=== PATIENT | female | born 1970 | race Caucasian/White ===

== ENCOUNTER 2025-05-24 07:05 | Inpatient (IN) | payer OTHER ==
[2025-05-24] VITALS (49 sets, daily range): BP systolic 152–253; BP diastolic 92–166
[~2025-05-24] VITALS: Ht 162.6 cm; Wt 85.0 kg
[~2025-05-24 07:05] MED LIST: AMLO10 PO; CLON.2 PO; DILT180 PO; FERR160 PO; HYDACE5 PO; LISI20 PO; METO50 PO; OXYACE5T PO; PRED20 PO; RXOXYACE PO
[2025-05-24 08:02] LABS: BASOPHILS ABSOLUTE AUTO 0.05 K/mm3 (0.00-0.23); BASOPHILS PERCENT AUTO 1 % (0-2); EOSINOPHILS ABSOLUTE AUTO 0.32 K/mm3 (0.00-0.68); EOSINOPHILS PERCENT AUTO 4 % (0-6); Hematocrit 34.1 % (33.0-51.0); Hemoglobin 11.5 g/dL (11.5-16.0); IMMATURE GRAN ABSOLUTE AUTO 0.03 K/mm3 (0.00-0.10); IMMATURE GRAN PERCENT AUTO 0 % (0-1); LYMPHOCYTES ABSOLUTE AUTO 1.60 K/mm3 (0.84-5.20); LYMPHOCYTES PERCENT AUTO 19 % (21-46); MONOCYTES ABSOLUTE AUTO 0.39 K/mm3 (0.16-1.47); MONOCYTES PERCENT AUTO 5 % (4-13); Mean Corpuscular HGB Conc 33.7 g/dL (31.5-36.5); Mean Corpuscular Volume 86 fL (80-100); NEUTROPHILS ABSOLUTE AUTO 6.02 K/mm3 (1.96-9.15); NEUTROPHILS PERCENT AUTO 72 % (41-73); NRBC ABSOLUTE 0.00 K/mm3 (0.00-0.02); NRBC Auto 0.0 /100 WBC (0.0-0.2); Platelet Count 271 K/mm3 (150-400); RDW Coefficient Variation 15.3 % (11.7-14.2); RDW Standard Deviation 48.0 fL (35.1-46.3)
[2025-05-24 08:22] LABS: Alanine Aminotransfer (ALT/SGP 73 U/L (12-78); Albumin, Blood 3.8 g/dL (3.4-5.0); Albumin/Globulin Ratio 1.1 (0.8-1.8); Anion Gap 10 mmol/L (3-11); Aspartate Aminotrans (AST/SGOT 92 U/L (12-37); Bilirubin, Total 1.1 mg/dL (0.1-1.0); Blood Urea Nitrogen 35 mg/dL (8-24); CO2, Blood 23 mmol/L (21-32); Calcium, Blood 9.5 mg/dL (8.5-10.1); Chloride, Blood 112 mmol/L (98-108); Creatinine, Blood 2.07 mg/dL (0.40-1.00); Ethanol (Alcohol), Blood, Med <3 mg/dL; Globulin, Blood 3.4 g/dL (2.2-4.0); Glucose, Blood 192 mg/dL (70-99); Magnesium, Blood 2.6 mg/dL (1.6-2.4); Potassium, Blood 3.3 mmol/L (3.5-5.5); Sodium, Blood 142 mmol/L (136-145); Total Protein, Blood 7.2 g/dL (6.4-8.2)
[2025-05-24] MEDS ORDERED: NS 1,000 ML IV SCH ×2 (08:35→11:00)
[2025-05-24] MEDS ORDERED: Labetalol HCL 5 MG/ML 4ML Injection (Single Dose) IV ONE (09:25)
[2025-05-24] MEDS ORDERED: CENTRUM SILVER1 EAC2 PO (10:02)
[2025-05-24] MEDS ORDERED: VITAMIN D5000 UNIT PO (10:02)
[2025-05-24] MEDS ORDERED: SPIRULINA PO (10:03)
[2025-05-24] MEDS ORDERED: IRON18 M1 PO (10:03)
[2025-05-24] MEDS ORDERED: TOTAL BEETS PO (10:03)
[2025-05-24] MEDS ORDERED: POTASSIUM PO (10:04)
[2025-05-24] MEDS ORDERED: Labetalol HCL 5 MG/ML 4ML Injection (Single Dose) IV PRN (10:30)
[2025-05-24] MEDS ORDERED: FLU VACC TS2025-26(6MOS UP)/PF 45 MCG/0.5 ML SYRINGE IM SCH (10:35)
[2025-05-24 10:52] LABS: Source, Urine Clean Catch
[2025-05-24 11:04] LABS: Color, Urine Yellow (P-Yellow); Glucose Qualitative, Urine Neg (Neg); Ketones, Urine Neg (Neg); Leukocyte Esterase, Urine Neg (Neg); Protein, Urine 4+ (Neg); Specific Gravity, Urine 1.025 (1.003-1.022); Urobilinogen, Urine 2+ (Normal)
[2025-05-24 12:00] LABS: Bilirubin, Urine 1+ (Neg)
[2025-05-24 12:03] LABS: White Blood Cells, Urine 0-2 /hpf (0-5)
[2025-05-24 12:42] LABS: U Amphetamine Screen Not Detected; U Barbiturate Screen Not Detected; U Benzodiazapine Screen Not Detected; U Buprenorphine Screen Not Detected; U Cannabinoids Screen Not Detected; U Cocaine Screen Not Detected; U Methadone Screen Not Detected; U Methamphetamine Screen Not Detected; U Opiates Screen Not Detected; U Oxycodone Screen Not Detected; U Phencyclidine Screen Not Detected
[2025-05-24] MEDS ORDERED: NiCARdipine HCL 50 MG in NS 250 ML IV SCH (12:45)
--- NOTE | 2025-05-24 12:50 | NUR ---
CHANGE IN STATUS: PATIENT CONTINUES TO INCREASE SYSTOLIC BLOOD PRESSURE, SPOKE WITH DR. VELIZ, CONTINUOUS CARDIAC IV MEDICATION ICU TRANSFER. DR. VELIZ TO PLACE ORDER. PATIETN AGREEABLE AND EDCUATION FOR NEED. FAMILY UPDATED. PLEASE SEE VITALS. DENIES CHEST PAIN PRESSURE OR SOB AT REST, HOWEVER, WITH EXERTION COMPLAINING OF CHEST/LOWER THROAT DISCOMFORT. ADDITIONALLY, TENDER HARD ABDOMEN PALPATION, INFORMED PROVIDER WELL. NO ACUTE CONCERNS NOT ADRESSED. SHE REMAINS ALERT AND ORIENTED X 4 ABLE TO MAKE NEEDS KNOWN, ENDORSING DIFFICULTY WITH VISION X 3 MONTHS. OVERALL VERY PALLOR. REPORT GIVEN TO CURTAIN DRIER. PARKS RECREATION COORDINATOR AND FLORAL DECORATOR AWARE
[2025-05-24] MEDS ORDERED: NiCARdipine HCL 25 MG/10 ML (2.5MG/ML) IV SCH (13:00)
--- NOTE | 2025-05-24 13:00 | NUR ---
PT TRANSFER TO ICU RECEIVED REPORT FROM PCU NURSE AND PT ARRIVED AT 1300. PT ALERT AND ORIENTED, ABLE TO STATE LOCATION, , AND NAME. PT ABLE TO FOLLOW COMMANDS. PT AMBULATES TO/FROM WHEELCHAIR [facility] NURSE ASSIST. PT ON RA, SPO2 >90%. PT REPORTS PAIN WITH DEEP BREATHS BUT NOT SOB. PT USES CPAP EVERY NIGHT CONSISTENTLY. RT NOTIFIED. RESTING ON RA, SPO2 88-90%. PT IN NSR, HR IN 80-90S. PT HYPERTENSIVE, BP 253/166 AT 1300. NICARDIPINE DRIP STARTED AT 2.5, TITRATED TO 5 D/T SBP >250. PT REPORTS BLURRY VISION AND MIGRAINE. PT ABD DISTENDED AND RIGID. PT DENIES PAIN ON PALPITATION. PT HX OF UTERINE FIBROID AND RIGHT NEPHRECTOMY. PT DOES NOT REMEMBER HER LAST BM, SAYS IT COULD BE THREE DAYS, MAYBE MORE. PT SAYS SHE FEELS LIKE SHE MAY HAVE A BM TODAY. PT SKIN PALLOR ON ASSESSMENT. PT HAS THREE PIVS, WNL. CALL LIGHT WITHIN REACH WITH NO NEEDS NOTED AT THIS TIME.
[2025-05-24 15:02] LABS: EOS, Urine 0.0 % (0.0-1.0); Eosinophils-Raw #,Urine 0
[2025-05-24] MEDS ORDERED: Magnesium Hydroxide Conc 10 ML UDC PO ONE (17:55)
--- NOTE | 2025-05-24 18:36 | NUR ---
SHIFT SUMMARY PT TRANSFERRED AT 1300 FROM PCU D/T HTN. SBP >250, NICARDIPINE DRIP INITIATED AT 1300, CURRENTLY INFUSING AT 2.5. PT REPORTS A "CHOKING" CHEST PAIN WITH EXERTION, NO CHEST PAIN WHILE RESTING IN BED. PT REPORTS MIGRAINES ALMOST DAILY, ON ARRIVAL PT REPORTED A MIGRAINE. DURING REASSESSMENT AT 1600, PT REPORTED MIGRAINE IMPROVED TO A PAIN LEVEL OF 1. PT REPORTS BLURRY VISION FOR A MAJORITY OF THE YEAR, WITH INCREASED BLURRY VISION THE LAST MONTH. PT ABLE TO AMBULATE WITH NURSE ASSIST TO [facility] [place] D/T WEAKNESS AND BLURRY VISION. PT HAS 3 PIVS, WNL. PT HAS DISTENDED ABD AND FIRM TO PALPITATION. PT HAS HX OF UTERINE FIBROID. PT ON RA, SPO2 >90%. PT USES CPAP AT HOME CONSISTENTLY AT NIGHT. CALL LIGHT WITHIN REACH AND NO NEEDS EXPRSSED AT THIS TIME.
[2025-05-25] VITALS (86 sets, daily range): BP systolic 138–187; BP diastolic 87–129
[2025-05-25 03:53] LABS: Anion Gap 9.0 mmol/L (3-11); Blood Urea Nitrogen 39.0 mg/dL (8-24); CO2, Blood 23.0 mmol/L (21-32); Calcium, Blood 9.1 mg/dL (8.5-10.1); Chloride, Blood 112.0 mmol/L (98-108); Creatinine, Blood 2.0 mg/dL (0.40-1.00); Glucose, Blood 108.0 mg/dL (70-99); Potassium, Blood 2.9 mmol/L (3.5-5.5); Sodium, Blood 141.0 mmol/L (136-145)
[2025-05-25] MEDS ORDERED: Potassium Chloride 10 Meq Tablet SA PO ONE ×2 (04:10→07:30)
--- NOTE | 2025-05-25 05:56 | NUR ---
SHIFT SUMMARY A/O X 3, FUZZY ON YEAR, BUT OTHERWISE ANSWERS APPROP, OCCAS SLOW TO RESPOND. HOME CPAP BROUGHT IN BY FAMILY LAST NIGHT AND PT WORE FOR AWHILE, DESATTED TO HIGH 80'S, PT OPTED TO TRY NC WHICH I STARTED AT 4L TO KEEP O2SAT>94%. PT COMFORTABLE WITH NC FOR NOW. TITRATED CARDENE GTT T/O NIGHT PER ORDERS, CURRENTLY AT 10MG/HR (SEE FLOWSHEET.) UP TO BSC A COUPLE OF TIMES EARLY IN SHIFT, INTRODUCED PUREWICK TO PT, SHE OPTED TO TRY IT AND IS WORKING WELL FOR HER. AFEBRILE T/O NIGHT. K+ WAS 2.9 ON AM LAB, DR OVIEDO UPDATED AND PO REPLACEMENT ORDERED AND GIVEN. WILL UPDATE DAY RN WITH ALL OUTSTANDING ISSUES AND PROBLEMS TO DATE.
[2025-05-25] MEDS ORDERED: Insulin Human Lispro 100 Units/ML 3ML Syringe SC SCH (07:30)
--- NOTE | 2025-05-25 08:00 | NUR ---
ASSUMPTION OF CARE RECEIVED REPORT FROM NOC NURSE. PT RESTING WITH EYES CLOSED. PER NOC NURSE, PT ABLE TO STATE NAME AND BUT NEEDS REORIENTATION TO SITUATION AND LOCATION. PT ON 4L NC D/T LUKE AND INTOLERANCE WITH HOSPITAL'S CPAP. PT ON RA WHILE AWAKE. PT HR IN 80-90S, SBP 170S. PT HAS PUREWICK IN PLACE D/T FREQUENCY. PT HAS MODERATELY DISTENDED ABD, DENIES PAIN WITH PALPITATION. PT HAS 3 PIVS, RAC, LAC, AND RHA. LAC LEAKING. NICARDIPINE INFUSING AT 12.5MG. CALL LIGHT WITHIN REACH WITH NO NEEDS EXPRESSED AT THIS TIME.
[2025-05-25] MEDS ORDERED: Enoxaparin 40 MG/0.4 ML SYR SC SCH (09:00)
[2025-05-25 11:19] LABS: pH Blood Venous 7.45 (7.34-7.37)
[2025-05-25] MEDS ORDERED: CefTRIAXone Sodium 1,000 MG in NS 100 ML IV SCH (11:49)
[2025-05-25] MEDS ORDERED: Heparin Sodium,Porcine/0.5 NS 500 ML IV SCH (11:55)
[2025-05-25 12:01] LABS: Hematocrit 28.3 % (33.0-51.0); Hemoglobin 9.3 g/dL (11.5-16.0); Mean Corpuscular HGB Conc 32.9 g/dL (31.5-36.5); Mean Corpuscular Volume 87 fL (80-100); NRBC ABSOLUTE 0.00 K/mm3 (0.00-0.02); NRBC Auto 0.0 /100 WBC (0.0-0.2); Platelet Count 284 K/mm3 (150-400); RDW Coefficient Variation 16.1 % (11.7-14.2); RDW Standard Deviation 50.2 fL (35.1-46.3)
[2025-05-25 12:03] LABS: Anti-Xa UFH, PHA Monitoring 0.15 IU/mL; Prothrombin Time Results 12.1 Sec (9.7-11.5)
[2025-05-25 12:09] LABS: Alanine Aminotransfer (ALT/SGP 166.0 U/L (12-78); Albumin, Blood 3.6 g/dL (3.4-5.0); Albumin/Globulin Ratio 1.1 (0.8-1.8); Anion Gap 10.0 mmol/L (3-11); Aspartate Aminotrans (AST/SGOT 110.0 U/L (12-37); Bilirubin, Total 0.9 mg/dL (0.1-1.0); Blood Urea Nitrogen 38.0 mg/dL (8-24); CO2, Blood 23.0 mmol/L (21-32); Calcium, Blood 9.2 mg/dL (8.5-10.1); Chloride, Blood 112.0 mmol/L (98-108); Creatinine, Blood 1.82 mg/dL (0.40-1.00); Globulin, Blood 3.2 g/dL (2.2-4.0); Glucose, Blood 138.0 mg/dL (70-99); Potassium, Blood 3.2 mmol/L (3.5-5.5); Sodium, Blood 142.0 mmol/L (136-145); Total Protein, Blood 6.8 g/dL (6.4-8.2)
--- NOTE | 2025-05-25 15:00 | NUR ---
CHANGE IN MENTATION AT 1020, PT PRESENTED WITH CHANGE IN MENTATION, UNABLE TO STATE SITUATION, TIME, OR LOCATION. PT INITIALLY ABLE TO STATE NAME AND , THEN REASSESSED AND UNABLE STATE . DR NOTIFIED. BLOOD GLUCOSE CHECKED, WNL. ASSESSED PT WITH NIHSS SCALE, PT SCORED AN 11 ON THE NIHSS SCALE. HEAD CT SCAN AND MRI SCAN PERFORMED, SUSPECTED ISCHEMIC STROKE. NOTIFIED. NEUROLOGY CONSULTED. PT ON NICARDIPINE DRIP AT 15, SBP IN 160-190S. PT ABLE TO FOLLOW COMMANDS AND MOVE ALL EXTREMITIES, REQUIRES CLEAR INSTRUCTIONS AND REPEATED AT TIMES. PT REPORTED ON ADMISSION BLURRY VISION, CHANGE IN VISION DURING 1020 ASSESSMENT, PRIMARILY IN RIGHT EYE. PT STATED THAT SHE COULD NOT SEE THROUGH HER RIGHT EYE AT ALL. PT ABLE TO STATE , NAME, AND WHERE SHE LIVES AT AT 1400, UNSURE OF LOCATION. PT REQUIRING MORE O2 SUPPORT, PT ON 4-6L NC CONTINUOUS. PT CURRENTLY RESTING WITH NO NEEDS NOTED AT THIS TIME.
[2025-05-25] MEDS ORDERED: Dose Adjust by Pharmacy XX STA ×2 (16:54→23:55)
--- NOTE | 2025-05-25 18:12 | NUR ---
SHIFT SUMMARY PT ALERT AND ORIENTED AT BEGINNING OF SHIFT, ABLE TO STATE NAME, , AND LOCATION BUT STRUGGLED WITH DATE. AT 1020, MENTATION DECREASED SIGNIFICANTLY. PERFORMED NIHSS SCALE, SCORE OF 11. SEE NOTE FOR MORE INFORMATION INVOLVING MENTATION CHANGES AND INTERVENTIONS PERFORMED. HEAD CT, HEAD MRI, LUNG SCAN, AND VENOUS ULTRASOUND PERFORMED. PT IN NSR, HR IN 80-90S, SBP 170-180S. DR. VELIZ RX TO TITRATE NICARDIPINE TO SBP IN 180S/PERMISSIVE HTN. NICARDIPINE AT 15 AND HEPARIN AT 18 UNITS. PT REQUIRING MORE O2 SUPPORT, 4-6L CONTINUOUS. CPAP NIGHTLY. ABD DISTENDED, PT DENIES ABD PAIN WITH PALPITATION. PT HAD INCONTINENT EPISODE, PUREWICK IN PLACE ATTACHED TO SUCTION. NEURO IMPROVED SLIGHTLY T/O SHIFT. ABLE TO STATE NAME, LOCATION, AND FOLLOW COMMANDS. PT UNABLE TO STATE AND SITUATION THAT LED TO HOSPITAL. SIGNIFICANT OTHER NOTIFIED AND SISTER AT BEDSIDE. CALL LIGHT WITHIN REACH WITH NO NEEDS NOTED AT THIS TIME.
[2025-05-26] VITALS (83 sets, daily range): BP systolic 141–211; BP diastolic 87–158
[2025-05-26] MEDS ORDERED: Dose Adjust by Pharmacy XX STA ×2 (01:53→07:35)
[2025-05-26] MEDS ORDERED: FentaNYL Citrate 50 MCG/ML 2 ML Injection IV ONE (04:20)
--- NOTE | 2025-05-26 06:07 | NUR ---
SHIFT SUMMARY AROUSABLE AT START OF SHIFT WITH VERBAL, MORE AWAKE WHEN DOING NIHSS, PT EASILY FRUSTRATED WHEN PERFORMING EVALUATION, DIFFICULTY WITH MULT ASPECTS DUE TO BLURRY VISION/PARTIAL BLINDNESS (PT STATES IS BASELINE). TITRATED NICARDIPINE GTT DOWN FROM 15MG TO 5MG/HR BY THIS AM, KEEPING SBP 170'S-180'S PER ORDERS. PT BECAME QUITE ANXIOUS, WRITHING IN PAIN (ABD), CRYING AROUND 0400, DR OVIEDO CALLED AND ORDER RECEIVED FOR FENT 50MCG X1 WHICH WAS GIVEN. PT STATED PAIN WENT AWAY, FEELING MUCH BETTER POST MED. EXPRESSIVE APHASIA IMPROVED T/O SHIFT, ABLE TO EXPRESS HERSELF WITH LESS DIFFICULTY. VSS STABLE AND AFEBRILE T/O NIGHT. LABS PENDING (SCHEDULED FOR 0630 W/aPTT). HEPARIN GTT INFUSING PER PHARMACY, NOW AT 21 U/KG/HR. WILL UPDATE DAY RN WITH ANY OUTSTANDING ISSUES/PROBLEMS TO DATE.
[2025-05-26 06:58] LABS: Hematocrit 29.7 % (33.0-51.0); Hemoglobin 9.4 g/dL (11.5-16.0); Mean Corpuscular HGB Conc 31.6 g/dL (31.5-36.5); NRBC ABSOLUTE 0.00 K/mm3 (0.00-0.02); NRBC Auto 0.0 /100 WBC (0.0-0.2); Platelet Count 289 K/mm3 (150-400); RDW Coefficient Variation 16.3 % (11.7-14.2); RDW Standard Deviation 55.3 fL (35.1-46.3)
[2025-05-26 06:59] LABS: Mean Corpuscular Volume 93 fL (80-100)
[2025-05-26 07:08] LABS: Anion Gap 12.0 mmol/L (3-11); Blood Urea Nitrogen 35.0 mg/dL (8-24); CO2, Blood 19.0 mmol/L (21-32); Calcium, Blood 8.8 mg/dL (8.5-10.1); Chloride, Blood 115.0 mmol/L (98-108); Creatinine, Blood 1.44 mg/dL (0.40-1.00); Glucose, Blood 120.0 mg/dL (70-99); Potassium, Blood 3.7 mmol/L (3.5-5.5); Sodium, Blood 142.0 mmol/L (136-145)
[2025-05-26] MEDS ORDERED: Benzocaine Oral Spray 0.5ML UD ONE (09:16)
--- NOTE | 2025-05-26 09:24 | NUR ---
AM NOTE... ASSUMED CARE OF PT AT 0700, PT IS A&O TO SELF, PLACE, AND FOLLOWING DIRECTIONS. PT HAS NOTED EXPRESSIVE APHASIA. LEFT IS SLIGHTLY MORE WEAK THAN THE RIGHT BUT IMPROVED FROM YESTERDAY. PT IS STILL C/O OF NOT BEING ABLE TO SEE OUT OF THE RIGHT EYE AND VERY BLURRY VISION OUT OF THE LEFT. PT IS IN SR IN THE 90'S-110'S, PT IS ON NICARDIPINE GTT AT 5MG/HR TO KEEP SBPs IN THE 180'S. PT DENIES CHEST PAIN DURING THIS ASSESSMENT. L/S ARE CLEAR AND DIM T/O SHE IS ON 4L NC WHEN NOT ON CPAP WITH 4L BLEED IN TO KEEP O2 SATS>90%. BT ARE PRESENT AND HYPERACTIVE, ABD IS DISTENDED, SOFT BUT VERY TENDER TO PALPATION. PT IS C/O OF 8/10 ABD PAIN, MOSTLY TO THE LEFT SIDE BUT STATES IT "HAPPENS ALL OVER AT TIMES." PURWICK IS IN PLACE. URINE IS SHIVAM. PLAN FOR FRANCISCO THIS AM AT THE BEDSIDE. PT HAS BEEN NPO FOR SAJI WHICH HAS BEEN RESCHEDULED FOR TOMORROW D/T THE FRANCISCO.
[2025-05-26] MEDS ORDERED: Benzocaine Oral Spray 0.5ML UD MT ONE (10:10)
--- NOTE | 2025-05-26 11:36 | NUR ---
FRANCISCO PROCEDURE... ANESTHESIA WAS AT THE BEDSIDE ALONG WITH EXPERIMENTAL BOX TESTER FOR A BEDSIDE FRANCISCO TO IDENTIFY THE MASS IN THE PT'S RIGHT ATRIUM. AT THE START OF THE PROCEDURE THE PT STARTED TO COUGH AND CLAMP DOWN, MORE SEDATION WAS GIVEN BY ANESTHESIA AND A SECDOND ATTEMPT TO PASS THE SCOPE WAS DONE, DURING THIS TIME THE PT STARTED COUGHING AND CLAMPED DOWN AGAIN, HER O2 SATS DROPPED DOWN FROM THE HIGH 90'S TO THE LOW 30'S. ANESHESIA PLACED AN LMA AND STARTED BAGGING THE PT. THE PT'S O2 SATS SLOWLY IMPOVED AND THE CASE WAS CANCELED. DURING THE CASE THE PT'S HR WAS SR IN THE 90'S-110'S. BP WAS HYPERTENSIVE WITH SBPs IN THE 180'S-190'S. LMA WAS REMOVED ONCE THE PT WOKE UP AND WAS ABLE TO PROTECT HER AIRWAY.
[2025-05-26] MEDS ORDERED: Polyethylene Glycol 3350 17 gm PO SCH (12:50)
[2025-05-26] MEDS ORDERED: N-Acetylcysteine 600 MG CAP PO SCH (13:00)
[2025-05-26] MEDS ORDERED: Metoprolol Tartrate 1 MG/ML 5 ML VIAL IV PRN (13:50)
--- NOTE | 2025-05-26 17:50 | NUR ---
SHIFT SUMMARY... NO ACUTE NEGATIVE CHANGES SINCE PREVIOUS NOTES. PT CONTINUES TO BE ON THE NICARDIPINE GTT AT 10MG/HR TO KEEP SBPs IN THE 180'S PER ORDERS. THE HEPARIN GTT WAS STOPPED PER ORDERS THIS SHIFT. PT WAS UP TO THE BS TO HAVE A BM. IMPACTED STOOL NOTED, PROVIDER NOTIFIED, NEW ORDERS OBATINED FOR BOWEL CARE. PT CONTINUES TO BE IN SR IN THE 80'S-90'S. SHE IS ON 4L NC WITH O2 SATS>90% OR CPAP WITH 4L BLEED IN. PT IS TO BE NPO AFTER MIDNIGHT FOR HYDASCAN TOMORROW, TIME UNKNOWN. PLANS FOR CARDIAC CT IF PT'S HR GOES BELOW 75.
[2025-05-26] MEDS ORDERED: FentaNYL Citrate 50 MCG/ML 2 ML Injection IV PRN (20:00)
[2025-05-26] MEDS ORDERED: Propofol 10mg/ml 20 ml Vial (Procedural) IV ONE (21:10)
[2025-05-26] MEDS ORDERED: SuccINYLCHOLINE Chloride 100 MG/5 ML 5MLSYR IV ONE (21:10)
[2025-05-27] VITALS (97 sets, daily range): BP systolic 143–199; BP diastolic 63–118
[2025-05-27 04:15] LABS: Hematocrit 28.6 % (33.0-51.0); Hemoglobin 9.3 g/dL (11.5-16.0); Mean Corpuscular HGB Conc 32.5 g/dL (31.5-36.5); Mean Corpuscular Volume 89 fL (80-100); NRBC ABSOLUTE 0.00 K/mm3 (0.00-0.02); NRBC Auto 0.0 /100 WBC (0.0-0.2); Platelet Count 332 K/mm3 (150-400); RDW Coefficient Variation 15.9 % (11.7-14.2); RDW Standard Deviation 52.2 fL (35.1-46.3)
[2025-05-27 05:15] LABS: Alanine Aminotransfer (ALT/SGP 89.0 U/L (12-78); Albumin, Blood 3.1 g/dL (3.4-5.0); Albumin/Globulin Ratio 0.9 (0.8-1.8); Anion Gap 12.0 mmol/L (3-11); Aspartate Aminotrans (AST/SGOT 33.0 U/L (12-37); Bilirubin, Total 0.9 mg/dL (0.1-1.0); Blood Urea Nitrogen 40.0 mg/dL (8-24); CO2, Blood 20.0 mmol/L (21-32); Calcium, Blood 9.3 mg/dL (8.5-10.1); Chloride, Blood 114.0 mmol/L (98-108); Creatinine, Blood 1.61 mg/dL (0.40-1.00); Ferritin, Serum 218.0 ng/mL (8-252); Globulin, Blood 3.5 g/dL (2.2-4.0); Glucose, Blood 125.0 mg/dL (70-99); Potassium, Blood 3.8 mmol/L (3.5-5.5); Sodium, Blood 142.0 mmol/L (136-145); Total Iron Binding Capacity 220.0 ug/dL (250-450); Total Protein, Blood 6.6 g/dL (6.4-8.2)
--- NOTE | 2025-05-27 06:07 | NUR ---
SHIFT SUMMARY MORE ALERT, ANXIOUS, SLIGHTLY AGITATED, C/O PAIN EARLY IN SHIFT. DR PATEL UPDATED AND ORDER RECEIVED FOR PAIN MED. PT MUCH MORE CALM, COOPERATIVE, PLEASANT AFTER PAIN CONTROLLED. PAIN MED GIVEN X 2 DURING SHIFT, CURRENTLY SLEEPING, CALM, DENIES PAIN. VSS WITH NICARDIPINE GTT, TITRATING FOR SBP 180S. SBP 160'S-180'S WITH GTT CURRENTLY AT 10MG/HR. INCONT OF STOOL AND URINE, PUREWICK REPLACED AFTER CLEANED UP AND ATTENDS CHANGED. WILL UPDATE DAY RN WITH ANY OUTSTANDING ISSUES AND PROBLEMS TO DATE.
[2025-05-27] MEDS ORDERED: Sod Ferric Gluc Complx/Sucrose 125 MG in NS 100 ML IV SCH (09:00)
[2025-05-27] MEDS ORDERED: Polyethylene Glycol 3350 17 gm PO SCH (09:00)
[2025-05-27] MEDS ORDERED: Enoxaparin 40 MG/0.4 ML SYR SC SCH ×2 (09:00)
--- NOTE | 2025-05-27 13:32 | NUR ---
PT ARRIVED BACK FROM NUCLEAR MED STUDY 1330. VS STABLE. NICARDAPINE OFF, SBP GOAL 180S.
--- NOTE | 2025-05-27 19:09 | NUR ---
SHIFT SUMMARY: NPO THROUGHOUT MORNING FOR IMAGING, PAINFUL THIS MORNING AND RESPONDED WELL TO REPOSITIONING WITH HEAT THERAPY, PT ENDORSED RELIEF OF PAIN, NO MEDICATION GIVEN. SPOUSE UPDATED THIS AFTERNOON. A/O X4, PLEASANT AND COOPERATIVE WITH CARE, SPEECH IS MUMBLED AT TIMES, DIFFICULTY INITIATING WORDS, ABLE TO COMMUNICATE NEEDS WITH TIME, ANXIOUS, EMOTIONAL: CRYING AT TIMES, RESPONDS WELL TO REDIRECTION, RIGHT PUPIL IS NOT ROUND, PT REPORTS THIS IS FROM A CHILDHOOD INJURY, INDEPENDENCE ENCOURAGED WITH FEEDING SELF, PT INDEPENDENTLY ATE SF PUDDING CUP WITH SET UP AND ORIENTATION TO SPOON/CUP. NSR, HR 60-90 S, EF 50-55%, PERMISSIVE HTN GOAL OF SBP 180 COMPLETE, SBP GOAL 140 (SEE NURSE NOTIFY), PT ENDORSED MILD CHEST PAIN THIS MORNING THAT QUICKLY RESOLVED ON IT S OWN, PT DENIES CHEST PAIN, PRESSURE, DIZZINESS, AND NUMBNESS/TINGLING AT THIS TIME. SPO2 >90% ON 2, TITRATED TO 8L WHEN LYING FLAT FOR IMAGING, USES CPAP W/SLEEP, HOME CPAP AT BEDSIDE, PT DENIES SOB. KNOWN UTERINE FIBROID, ABD MILDLY TENDER TO LIGHT PALPATION, HX OF RIGHT NEPHRECTOMY, PUREWICK IN PLACE TO LIGHT SUCTION, BM SMEAR. BED BATH THIS SHIFT. PT ORIENTED TO CALL LIGHT WITH TELE PATCH FOR AID WITH FINDING NURSE CALL BUTTON, PT SUCCESSFULLY DEMONSTRATED USE OF CALL LIGHT, Q2 SELF AND ASSISTED TURNING.
[2025-05-28] VITALS (94 sets, daily range): BP systolic 132–192; BP diastolic 78–118
--- NOTE | 2025-05-28 02:12 | NUR ---
SPOKE TO DR OVIEDO ABOUT PT BP, OK W/ SYSTOLIC 160
[2025-05-28 05:09] LABS: Albumin, Blood 3.0 g/dL (3.4-5.0); Anion Gap 8 mmol/L (3-11); Blood Urea Nitrogen 37 mg/dL (8-24); CO2, Blood 22 mmol/L (21-32); Calcium, Blood 9.0 mg/dL (8.5-10.1); Chloride, Blood 115 mmol/L (98-108); Creatinine, Blood 1.50 mg/dL (0.40-1.00); Glucose, Blood 102 mg/dL (70-99); Phosphorus, Blood 3.7 mg/dL (2.5-4.9); Potassium, Blood 3.7 mmol/L (3.5-5.5); Sodium, Blood 141 mmol/L (136-145)
[2025-05-28] MEDS ORDERED: Isosorbide Mononitrate 30 MG TABCR PO ONE (05:50)
--- NOTE | 2025-05-28 06:00 | NUR ---
SHIFT SUMMERY PT HAS BEEN ALERT AND ORIENTED TO SELF AND PLACE OVERNIGHT. SHE IS ABLE TO FOLLOW COMMANDS AND MAKE NEEDS KNOWN. NO DEFICITS NOTED ON EITHER SIDE W/STRENGTH EQUAL W/DIFFUSE WEAKNESS. SHE HAS WORN HER CPAP ALL NIGHT W/BLEED IN OXYGEN, SATURATION >90% W/NO RESP DISTRESS REPORTED OR NOTED. PT HAS BEEN SR ON THE SEAT JOINER. AFEBRILE. SHE IS INCONTINENT OF URINE W/PUREWICK IN PLACE. NO BM. PT HAS BEEN HYPERTENSIVE THROUGHOUT THE NIGHT. I HAVE SPOKEN W/DR OVIEDO NEEDED AND ORDERS GIVEN APPROPRIATE. NICARDIPINE INFUSING, SEE [facility]. NO ACUTE CHANGES/DISTRESS OVERNIGHT.
[2025-05-28] MEDS ORDERED: NS 250 ML IV PRN (09:20)
--- NOTE | 2025-05-28 19:06 | NUR ---
PT HAS BEEN LETHARGIC BUT ORIENTED THROUGHOUT THE SHIFT. PT CONTINUES TO HAVE AGNOSIA AND DIFFICULTY FINDING CERTAIN WORDS SHE WISHES TO USE BUT SHE IS USUALLY ABLE TO EXPRESS ALL NEEDS ADEQUATELY. PAIN MANAGED WITH PRN MEDICATIONS PT FOLLOWS COMMANDS ON ALL EXTREMITIES ALTHOUGH SHE IS VERY WEAK. SHE WAS ABLE TO FEED HERSELF BUT SHE NEEDS TO KNOW WHAT AND WHERE EACH FOOD IS LOCATED SHE IS STILL UNABLE TO SEE WELL. GRIPPING UTENSILS IS DIFFICULT FOR HER. PT GOT UP TO CHAIR THIS AM WITH 2 ASSIST. PT HAS REMAINED ON 2L NC AND SATS > 95 PT HAS BEEN IN NSR IN THE 60S-70S. BLOOD PRESSURES HAVE BEEN LABILE WITH NICARD GTT/ PO/ IV PRN MEDICATIONS. I WAS ABLE TO GET THE GTT OFF BUT BPS TYSHAWN TO 180S SYS AND PT DEVELOPED HEADACHE. NICARD GTT WAS TURNED BACK ON AND IV PRN MEDICATIONS GIVEN. PT WITH PUREWICK AND ADEQUATE URINE OUTPUT. NO BM FOR DAYSHIFT.
--- NOTE | 2025-05-28 21:21 | NUR ---
ASSUMPTION OF CARE CARE OF PT ASSUMED FOLLOWING BEDSIDE SHIFT REPORT FROM DAY RN. PT LYING IN BED SLEEPING, AWAKES TO VOICE AND IS ALERT AND ORIENTED TO ALL, THOUGH SOME FORM OF EXPRESSIVE APHASIA IS PRESENT WITH PT HAVING TROUBLE "FINDING" WORDS. AFEBRILE. SINUS RHYTHM IN THE 60'S WITH ELEVATED BP ON NICARDIPINE 5 MG/HR. 145/100. WILL TITRATE NEEDED AND WILL ADMINISTER NEWLY DOSED SCHEDULED HTN MEDS TONIGHT. NO CHEST PAIN OR SOB. 2L NC WITH SAT > 92% PT ABDOMEN IS DISTENDED WITH PALPABLE UTERINE FIBROID. BS ACTIVE THROUGHOUT. PT C/O PAIN IN EPIGASTRUM- CANNOT ADD DETAILS. WILL ADMINISTER ALEXANDRA COLACE AND MAY ADVOCATE FOR ADDITIONAL PHARMACOLOGIC INTERVENTION, ALTHOUGH LAST BM LESS THAN 24 HRS AGO. PUREWICK IN PLACE TO SUCTION; URINE IS SHIVAM. WILL MONITOR. WILL REVIEW AND CONTINUE PLAN OF CARE.
[2025-05-29] VITALS (85 sets, daily range): BP systolic 141–193; BP diastolic 82–135
[2025-05-29 03:30] LABS: BASOPHILS ABSOLUTE AUTO 0.05 K/mm3 (0.00-0.23); BASOPHILS PERCENT AUTO 1 % (0-2); EOSINOPHILS ABSOLUTE AUTO 0.21 K/mm3 (0.00-0.68); EOSINOPHILS PERCENT AUTO 2 % (0-6); Hematocrit 27.4 % (33.0-51.0); Hemoglobin 8.7 g/dL (11.5-16.0); IMMATURE GRAN ABSOLUTE AUTO 0.04 K/mm3 (0.00-0.10); IMMATURE GRAN PERCENT AUTO 1 % (0-1); LYMPHOCYTES ABSOLUTE AUTO 1.15 K/mm3 (0.84-5.20); LYMPHOCYTES PERCENT AUTO 13 % (21-46); MONOCYTES ABSOLUTE AUTO 0.99 K/mm3 (0.16-1.47); MONOCYTES PERCENT AUTO 12 % (4-13); Mean Corpuscular HGB Conc 31.8 g/dL (31.5-36.5); Mean Corpuscular Volume 90 fL (80-100); NEUTROPHILS ABSOLUTE AUTO 6.20 K/mm3 (1.96-9.15); NEUTROPHILS PERCENT AUTO 72 % (41-73); NRBC ABSOLUTE 0.00 K/mm3 (0.00-0.02); NRBC Auto 0.0 /100 WBC (0.0-0.2); Platelet Count 354 K/mm3 (150-400); RDW Coefficient Variation 14.9 % (11.7-14.2); RDW Standard Deviation 49.1 fL (35.1-46.3)
[2025-05-29 04:43] LABS: Albumin, Blood 2.9 g/dL (3.4-5.0); Anion Gap 8 mmol/L (3-11); Blood Urea Nitrogen 37 mg/dL (8-24); CO2, Blood 23 mmol/L (21-32); Calcium, Blood 8.9 mg/dL (8.5-10.1); Chloride, Blood 114 mmol/L (98-108); Creatinine, Blood 1.42 mg/dL (0.40-1.00); Glucose, Blood 112 mg/dL (70-99); Phosphorus, Blood 3.2 mg/dL (2.5-4.9); Potassium, Blood 3.8 mmol/L (3.5-5.5); Sodium, Blood 141 mmol/L (136-145)
--- NOTE | 2025-05-29 05:59 | NUR ---
SHIFT SUMMARY PT LYING IN BED IN NO APPARENT DISTRESSED, APPEARED TIRED ALL SHIFT, SHE DOES NOW. ORIENTED TO ALL BUT EXPRESSIVE APHASIA CONTINUES. AFEBRILE. MOVES EXTREMITIES AND STRENGTH INTACT. PT APPEARS TO HAVE SOME CENTRAL VISION ISSUE. SINUS RHYTHM WITH RATE 50-80, NOW 65, AND ELEVATED BP. PLAN WAS TO TITRATE OFF OF NICARDIPINE BUT THAT HAS NOT HAPPENED YET, AND IT IS STILL AT 7.5 MG/HR WITH ONE DOSE OF LABETALOL GIVEN. NO CHEST PAIN/PRESSURE OR SOB. SAT > 90% ON CPAP WITH 6L BLEED IN OR ON NC 6L WHEN OFF CPAP. EIGASTRIC AB PAIN ALL SHIFT TREATED WITH FENTANYL X 1 AND TYLENOL X 1. NO BM. BS ACTIVE. AB DISTENDED. PUREWICK IN PLACE TO SUCTION WITH 625 OUT FOR SHIFT. BEDSIDE SHIFT REPORT GIVEN TO ONCOMING RAMIRO
[2025-05-29] MEDS ORDERED: Ondansetron HCl 2 MG / ML 2ML Vial IV PRN (14:50)
--- NOTE | 2025-05-29 19:09 | NUR ---
N: PT REMAINS DROWSY BUT ORIENTED WHEN QUESTIONED. SHE HAS EXPRESSIVE APHASIA AT TIMES BUT CAN COMMUNICATE NEEDS. SHE IS WEAK WITH STAND AND PIVOTS AND MUST BE REMINDED OF SAFETY INSTRUCTIONS WITH AMBULATING. C: PT REMAINS ON NICARDIPINE AT 3 MG/HR. I WAS ABLE TO TITRATE FROM 10 MG/HR BUT PT STILL NEEDS THE GTT TO KEEP SYS < 180. HRS 60-70S. L: PT ON 2-3L NC THROUGHOUT SHIFT MAINTAINING SATS > 95 G/G: PT WITH ONE EPISODE OF NAUSEA THAT WAS RELIEVED WITH PRN ZOFRAN. PT WITHOUT BM SINCE 05/27. SHE IS GETTING BOWEL PREP MEDS BUT WAS EDUCATED ON OPIOIDS CAUSING CONSITPATION. PUREWICK IN PLACE TO LOW SUCTION. URINE OUTPUT ADEQUATE FOR THE SHIFT. POSSIBLE BLOOD TINGED URINE, INFORMED ONCOMING NURSE TO MONITOR.
--- NOTE | 2025-05-29 22:29 | NUR ---
ASSUMPTION OF CARE ASSUMED CARE OF PT APPROX 1900. PT REMAINS A/O X4, ABLE TO ANSWER QUESTIONS AND USE CALL LIGHT BUT NEEDS REMINDED OF LOCATION AT TIMES. PT IS ABLE TO REPOSITION WITHIN BED BUT NEEDS STANDBY ASSIST WITH GAIT BELT TO TRANSFER BETWEEN CHAIR AND BED. BP REMAINS ELEVATED BUT WITHIN PROVIDER PARAMETERS WITH SBP IN 160S-170S WITH NICARDIPENE INFUSING AT 3 MG/HR. SATS REMAIN >93% ON CPAP WITH 02 AT 4L. SINUS ON MONITOR WITH RATES IN THE 60S-70S. PT ASSISTED FROM BEDSIDE CHAIR INTO BED APPROX 2100 AND PLACED ON HOME CPAP MACHINE. CALL LIGHT WITHIN REACH.
[2025-05-30] VITALS (58 sets, daily range): BP systolic 146–219; BP diastolic 84–154
[2025-05-30 04:25] LABS: Anion Gap 8.0 mmol/L (3-11); Blood Urea Nitrogen 31.0 mg/dL (8-24); CO2, Blood 23.0 mmol/L (21-32); Calcium, Blood 9.3 mg/dL (8.5-10.1); Chloride, Blood 114.0 mmol/L (98-108); Creatinine, Blood 1.29 mg/dL (0.40-1.00); Glucose, Blood 103.0 mg/dL (70-99); Potassium, Blood 4.0 mmol/L (3.5-5.5); Sodium, Blood 141.0 mmol/L (136-145)
--- NOTE | 2025-05-30 04:36 | NUR ---
PATIENT UPDATE PT CONTINUES TO BE HYPERTENSIVE WITH LITTLE EFFECT FROM PRN LABETALOL PUSHES. SBP REMAINS IN THE 180S-190S WITH NICARDIPENE GTT AT 3 MG/HR. SPOKE WITH PROVIDER WHO CLARIFIED INSTRUCTIONS FOR NURSING STAFF TO CONTINUE TITRATING NICARDIPENE RATHER THAN ADJUSTING PRN MEDICATIONS. NICARDIPENE GTT INCREASED TO 5.5M G/HR -SEE [facility].
--- NOTE | 2025-05-30 05:54 | NUR ---
SHIFT SUMMARY PT REMAINS A/O X4, ON HOME CPAP WHILE SLEEPING WITH SATS >93%. BP REMAINS ELEVATED WITH SBP IN THE 170S-180S AND NICARDIPENE GTT AT 5.5 MG/HR, SEE PREVIOUS NOTE AND [facility]. DENIES HEADACHE, N/V. SINUS RHYTHM ON MONITOR WITH RATE IN THE 60S. PT REPOSITIONS SELF AND TURNS IN BED WHILE RESTING, 2 ASSIST WITH GAIT BELT TO TRANSFER TO BEDSIDE CHAIR. PUREWICK IN PLACE TO LOW SUCTION. CALL LIGHT WITHIN REACH.
--- NOTE | 2025-05-30 08:14 | NUR ---
ASSUMPTION OF CARE ASSUMED CARE OF PATIENT AT APPROX 0700. PATIENT A&OX4 AND ABLE TO MAKE NEEDS KNOWN. HR SINUS IN THE 80S-90S. SBP IN THE 180S WITH NICARDIPINE INFUSING AT 8MG/HR. PATIENT ON 4LO2 VIA HOME CPAP MACHINE WITH SPO2 >94%. PUREWICK IN PLACE DRAINING YELLOW URINE TO SUCTION. CALL LIGHT IN REACH. BED IN LOWEST POSITION. AT 0800 PATIENT UP TO CHAIR. ON RA WITH SPO2 >94%. NICARDIPINE INFUSING AT 5MG/HR WITH SBP IN THE 160S.
--- NOTE | 2025-05-30 11:35 | NUR ---
CONSULT RECEIVED AND REVIEWED. NO POLST/AD ON FILE.
--- NOTE | 2025-05-30 14:46 | NUR ---
HYPERTENSION SBP MAINTAINING 160S-170S DESPITE SCHEDULED AND PRN MEDICATION REGIMEN. PROVIDER NOTIFIED AND INSTRUCTED TO NOT RESTART NICARDIPINE GTT AND CONTINUE ORDERED MEDICATION REGIMEN.
--- NOTE | 2025-05-30 17:44 | NUR ---
SHIFT SUMMARY PATIENT A&OX4 AND ABLE TO MAKE NEEDS KNOWN WITH CALL LIGHT. NO FOCAL DEFICITS. PATIENT ENDORSED SOME ANXIETY TODAY ABOUT FAMILY DYNAMICS AND CURRENT SITUATION. HR SINUS IN THE 60S-80S. SBP IN THE 180S DESPITE MULTIPLE BP MEDICATIONS AND TWO DOSES OF LABETALOL. PROVIDER AWARE, NEW GOAL TO KEEP SBP UNDER 180. PATIENT ON 2L02 VIA NC WITH SPO2 >96%. PUREWICK IN PLACE DRAINING YELLOW URINE TO LOW SUCTION. NO BM THIS SHIFT. PATIENT UP WITH NURSE ASSIST TO CHAIR TODAY. CALL LIGHT IN REACH.
[2025-05-30] MEDS ORDERED: Labetalol HCL 5 MG/ML 4ML Injection (Single Dose) IV PRN (19:00)
--- NOTE | 2025-05-30 19:30 | NUR ---
ASSUMPTION OF CARE ASSUMED CARE OF PT APPROX 1900. PT RESTING IN BED ON 2L NC, SATS 95%. SINUS ON MONITOR WITH RATE OF 68, BP REMAINS ELEVATED WITH SYSTOLIC IN 170S. PT DENIES HEADACHE, N/V AT THIS TIME. PT REMAINS A/O, ABLE TO ANSWER QUESTIONS AND USE CALL LIGHT APPROPRIATELY. DENIES UNMET NEEDS AT THIS TIME. CALL LIGHT WITHIN REACH.
[2025-05-31] VITALS (60 sets, daily range): BP systolic 139–194; BP diastolic 86–112
--- NOTE | 2025-05-31 00:35 | NUR ---
PATIENT UPDATE PT REMAINS HYPERTENSIVE WITH SBP 195-219 WITH LITTLE IMPROVEMENT DESPITE PRN LABETALOL PUSHES AND SCHEDULED PO MEDICATIONS. CONTACTED PROVIDER, INSTRUCTIONS GIVEN TO RESTART NICARDIPENE GTT WITH NEW GOAL OF 170 SBP.
[2025-05-31 04:23] LABS: BASOPHILS ABSOLUTE AUTO 0.07 K/mm3 (0.00-0.23); BASOPHILS PERCENT AUTO 1 % (0-2); EOSINOPHILS ABSOLUTE AUTO 0.38 K/mm3 (0.00-0.68); EOSINOPHILS PERCENT AUTO 5 % (0-6); Hematocrit 34.0 % (33.0-51.0); Hemoglobin 10.9 g/dL (11.5-16.0); IMMATURE GRAN ABSOLUTE AUTO 0.16 K/mm3 (0.00-0.10); IMMATURE GRAN PERCENT AUTO 2 % (0-1); LYMPHOCYTES ABSOLUTE AUTO 1.28 K/mm3 (0.84-5.20); LYMPHOCYTES PERCENT AUTO 16 % (21-46); MONOCYTES ABSOLUTE AUTO 0.75 K/mm3 (0.16-1.47); MONOCYTES PERCENT AUTO 9 % (4-13); Mean Corpuscular HGB Conc 32.1 g/dL (31.5-36.5); Mean Corpuscular Volume 89 fL (80-100); NEUTROPHILS ABSOLUTE AUTO 5.47 K/mm3 (1.96-9.15); NEUTROPHILS PERCENT AUTO 67 % (41-73); NRBC ABSOLUTE 0.00 K/mm3 (0.00-0.02); NRBC Auto 0.0 /100 WBC (0.0-0.2); Platelet Count 499 K/mm3 (150-400); RDW Coefficient Variation 15.1 % (11.7-14.2); RDW Standard Deviation 48.6 fL (35.1-46.3)
[2025-05-31 04:55] LABS: Anion Gap 7.0 mmol/L (3-11); Blood Urea Nitrogen 27.0 mg/dL (8-24); CO2, Blood 25.0 mmol/L (21-32); Calcium, Blood 9.6 mg/dL (8.5-10.1); Chloride, Blood 111.0 mmol/L (98-108); Creatinine, Blood 1.18 mg/dL (0.40-1.00); Glucose, Blood 105.0 mg/dL (70-99); Potassium, Blood 3.8 mmol/L (3.5-5.5); Sodium, Blood 139.0 mmol/L (136-145)
--- NOTE | 2025-05-31 06:27 | NUR ---
SHIFT SUMMARY PT REMAINS A/O X4, ABLE TO USE CALL LIGHT AND MAKE NEEDS KNOWN. CURRENTLY ON CPAP WHILE SLEEPING, SATS >94%, SINUS ON MONITOR WITH RATE IN THE 70S, BP REMAINS ELEVATED WITH SBP IN THE 180S-190S WITH PRN LABETALOL AND NICARDIPENE GTT. CONTACTED PROVIDER TO FOLLOW UP AFTER LAST PT UPDATE SINCE NICARDIPENE WAS RESTARTED AND CONFIRMED ORDERS ARE TO CONTINUE DRIP WITH PO MEDS AND IV PUSH LABETALOL NEEDED PER AUG. NICARDIPENE CURRENTLY AT 12.5 MG/HR. PUREWICK IN PLACE TO LOW SUCTION DRAINING PALE YELLOW URINE. PT DENIES HEADACHE, N/V, DENIES UNMET NEEDS AT THIS TIME. CALL LIGHT WITHIN REACH.
[2025-05-31] MEDS ORDERED: Labetalol HCL 5 MG/ML 4ML Injection (Single Dose) IV PRN (08:10)
--- NOTE | 2025-05-31 14:00 | NUR ---
PROVIDER CONTACT PATIENT COMPLAINED OF CHEST PAIN WHILE WORKING WITH OT. PATIENT PUT BACK INTO BED, EKG DONE. PATIENT ENDORSED PAIN WAS GONE ONCE LAYING BACK DOWN IN BED. DR ANAYA NOTIFIED. NO NEW ORDERS.
--- NOTE | 2025-05-31 15:53 | NUR ---
PROVIDER CONTACT PATIENT WAS HAVING A LOT OF ANXIETY AND WAS UNABLE TO RELAX AND TOLERATE WEARING HER CPAP. CONTACTED DR ANAYA. ORDERS RECIEVED. PATIENT NOW ABLE TO TOLERATE CPAP AFTER ANXIETY MEDICATION.
--- NOTE | 2025-05-31 17:12 | NUR ---
SHIFT SUMMARY PATIENT A&OX4 AND ABLE TO MAKE NEEDS KNOWN WITH THE CALL LIGHT. NO FOCAL DEFICITS. PATIENT ENDORSES SOME ISSUES WITH PERIPHERAL VISION AT TIMES. HR SINUS IN THE 60S-80S. BP STABLE ON THE NICARDIPINE GTT. SEE FLOWSHEET FOR TITRATIONS. PATIENT ON RA THROUGHOUT THE DAY WITH SPO2 >94%. PATIENT USED CPAP INTERMITTENTLY THIS EVENING. SEE PROVIDER CONTACT NOTE ABOUT ANXIETY. PUREWICK IN PLACE AND DRAINING PALE YELLOW URINE TO SUCTION. NO BM THIS SHIFT DESPITE SCHEDULED BOWEL MEDS. CALL LIGHT IN REACH. BED IN LOWEST POSITION.
--- NOTE | 2025-05-31 20:00 | NUR ---
ASSUMPTION OF CARE CARE OF PT ASSUMED FOLLOWING BEDSIDE SHIFT REPORT FROM DAY RN. PT LYING IN BED SLEEPING, ALERT AND ORIENTED UPON AWAKENING, THOUGH SLOW TO RESPOND TO QUESTIONS EXPRESSIVE APHASIA PERSISTS. NO GROSS NEURO DEFICITS. AFEBRILE. PT ENDORSES HEADACHE. SINUS RHYTHM IN THE 70'S WITH SBP 160'S ON NICARDIPINE 8 MG/HR. PT SET TO RECEIVE 50MG OF HYDRALAZINE AND SOME AMLODIPINE PO AT 2100. PT HAS CPAP ON ALREADY; MARIANA CAME AND TRIED TO FIX AND EVENTUALLY REPLACED PT'S HOME CPAP WITH A NEW ONE. HAS 3L O2 BLEED IN, PRODUCING SATURATIONS > 92%. PT DENIES CHEST PAIN AND SOB. PT LUNGS ARE RHONCHOROUS IN THE ANTERIOR/MEDIAL [place] AND MUCOUS IS AUDIBLE IS PT'S UPPER AIRWAY. TRIED TO SUCTION AND TAUGHT PT HOW TO USE SUCTION. PT HAS NOT HAD BM SINCE 05/27; PLAN TO ESCALATE BOWEL REGIMEN TONIGHT. NO AB PAIN, N/V. BOWEL SOUNDS INTACT THROUGHOUT. PUREWICK IN PLACE DRAINING YELLOW URINE TO LOW SUCTION. WILL REVIEW AND CONTINUE PLAN OF CARE.
[2025-06-01] VITALS (70 sets, daily range): BP systolic 144–190; BP diastolic 87–120
[2025-06-01 05:20] LABS: Anion Gap 9.0 mmol/L (3-11); Blood Urea Nitrogen 26.0 mg/dL (8-24); CO2, Blood 24.0 mmol/L (21-32); Calcium, Blood 9.4 mg/dL (8.5-10.1); Chloride, Blood 109.0 mmol/L (98-108); Creatinine, Blood 1.31 mg/dL (0.40-1.00); Glucose, Blood 115.0 mg/dL (70-99); Potassium, Blood 3.7 mmol/L (3.5-5.5); Sodium, Blood 138.0 mmol/L (136-145)
--- NOTE | 2025-06-01 06:30 | NUR ---
SHIFT SUMMARY PT LYING IN BED IN NO APPARENT DISTRESSED, SLEEPING WITH CPAP ON AND AWAKES TO VOICE. ORIENTED TO ALL BUT EXPRESSIVE APHASIA CONTINUES. AFEBRILE TO 98.8 F MOVES EXTREMITIES AND STRENGTH INTACT. PT APPEARS TO HAVE SOME VISION ISSUE THAT MAKES DRINKING FLUIDS INDEPENDENTLY, SOMEWHAT DIFFICULT. SINUS RHYTHM WITH RATE 60-80, NOW 68, AND ELEVATED BP. NICARDIPINE IS STILL AT 8 MG/HR WITH ONE DOSE OF LABETALOL GIVEN, WHICH DID ABSOLUTELY NOTHING TO DECREASE SBP. NO CHEST PAIN/PRESSURE OR SOB. SAT > 90% ON CPAP WITH 2L BLEED IN OR ON NC 3L WHEN OFF CPAP. AP PAIN DRASTICALLY DECREASED AFTER A LATE SHIFT BM. BS ACTIVE. AB DISTENDED. PUREWICK IN PLACE TO SUCTION WITH 1325 OUT FOR SHIFT. BEDSIDE SHIFT REPORT GIVEN TO ONCOMING RN
--- NOTE | 2025-06-01 10:31 | NUR ---
ASSUMPTION OF CARE ASSUMED CARE OF PATIENT AT APPROXIMATELY 0700. PT RESTING IN BED, ALERT AND ORIENTED X4. PT ANSWERS QUESTIONS APPROPRIATELY, FOLLOWS DIRECTION WHEN PROMPTED AND IS ABLE TO MAKE HER NEEDS KNOWN. PT EXPERIENCING BLURRY VISION, STATES SHE FEELS IT HAS IMPROVED SINCE BEING IN THE HOSPITAL. HR 60'S SINUS, NICARDIPINE DRIP INFUSING AT 6MG/HR, SEE FLOWSHEET FOR TIRTRATIONS. GOAL TO MAINTAIN SBP <180. PT ON 2LPM VIA NC, CPAP WITH 2L O2 BLEED IN WHILE SLEEPING. BOWEL TONES HYPERACTIVE, PT TOLERATING PO INTAKE. PUREWICK AND ATTENDS IN PLACE. PIV IN PLACE TO LFA, POWERGLIDE IN PLACE TO TAYLOR. BED IN LOWEST POSITION, CALL LIGHT WITHIN REACH, CARE CONTINUES.
--- NOTE | 2025-06-01 16:24 | NUR ---
PT UPDATE PT COMPLAINING OF 3/10 CHEST PAIN DESCRIBED PRESSURE WITH OCCASIONAL SHARP PAINS. PT STATES SHE DOES FEEL ANXIOUS. MEDICATED PER EMAR. DR. ROD CALLED AND NOTIFIED OF THE CP, NO NEW ORDERS AT THIS TIME. BED IN LOWEST POSITION, CALL LIGHT WITHIN REACH, CARE CONTINUES.
--- NOTE | 2025-06-01 17:23 | NUR ---
SHIFT SUMMARY PT CONTINUES TO REST IN BED, SLEEPING BUT AROUSABLE. PT ORIENTED X4, SLOW TO RESPOND AT TIMES. PT ABLE TO MAKE HER NEEDS KNOWN, MOVES EXTREMITIES EQUALLY BILATERALLY, AMBULATES IN THE ROOM WITH ASSISTANCE. HR 60-80'S SINUS, NICARDIPINE PLACED ON SB THIS SHIFT, SEE FLOWSHEET FOR TITRATIONS, GIVEN PRN MEDICATION FOR HTN, SEE EMAR. PT COMPLAINING OF CHEST PAIN 08/16, PROVIDER INFOMRED. PT ALTERNATING BETWEEN RA AND CPAP WITH 2L 02 BLEED IN WHILE SLEEPING. BOWEL TONES ACTIVE THROUGHOUT. PUREWICK AND ATTENDS IN PLACE. PIV IN PLACE TO LFA, POWERGLIDE IN PLACE TO TAY[place]OR SL. BED IN LOWEST POSITION, CALL LIGHT WITHIN REACH, CARE CONTINUES.
[2025-06-02] VITALS (42 sets, daily range): BP systolic 127–178; BP diastolic 82–109
[2025-06-02 04:44] LABS: Anion Gap 11.0 mmol/L (3-11); Blood Urea Nitrogen 31.0 mg/dL (8-24); CO2, Blood 23.0 mmol/L (21-32); Calcium, Blood 9.7 mg/dL (8.5-10.1); Chloride, Blood 108.0 mmol/L (98-108); Creatinine, Blood 1.32 mg/dL (0.40-1.00); Glucose, Blood 123.0 mg/dL (70-99); Potassium, Blood 3.8 mmol/L (3.5-5.5); Sodium, Blood 138.0 mmol/L (136-145)
--- NOTE | 2025-06-02 06:13 | NUR ---
TRANSFER OF CARE CARE OF PT TRANSERRED TO ANOTHER RN AT 0500. PT ALERT AND ORIENTED WITH EXPRESSIVE APHASIA AND BLURRY VISION AND A MILD HEADACHE. PT ANXIETY IS CONTROLLED WITH XANAX BID AND THIS SEEMS TO BE HELPING WITH BP CONTROL, WHICH WAS BELOW 170 SYSTOLIC FOR MOST OF SHIFT. SINUS RHYTHM RATE IN THE 60'S. NICARDIPINE STAYED OFF. CPAP ON AT 2L BLEED IN WITH > 90% SPO2. PT DENIES CHEST PAIN, SOB, N/V ALL SHIFT. SOME CRAMPING AB PAIN THAT WAS BETTER AFTER AN INCONTINENT BM. CHARTED URINE OUTPUT THROUGH PUREWICK 700ML WITH MORE IN CANISTER AT TIME OF PT TRANSFER. SALINE LOCKED. BEDSIDE SHIFT REPORT GIVEN TO ACCEPTING RN.
--- NOTE | 2025-06-02 06:25 | NUR ---
TRANSFER OF CARE ASSUMED CARE AT 0500. PT RESTING COMFORTABLY IN BED WITH CPAP ON W/ 2L BLEED IN. O2 SATS <95. IN A SINUS RHYTHM, HR 70'S. BP 160'S SYSTOLIC. PUREWICK IN PLACE AND DRAINING TO SUCTION. BED IN LOWEST POSITION, CALL LIGHT WITHIN REACH.
--- NOTE | 2025-06-02 19:03 | NUR ---
N: PT A&O X4. STILL PRESENTS WITH EXPRESSIVE APHASIA BUT IS ORIENTED AND ABLE TO COMMUNICATE ALL NEEDS. BLE STRENGTH IS IMPROVING AND TRANSFERS ARE GETTING EASIER FOR HER. GRASPING SMALL ITEMS IS DIFFICULT FOR HER. CV: HRS 70-80S. SYS CONTROLLED WITH PO MEDICATIONS. LABATELOL GIVEN ONCE AT 0715. R: PT USING CPAP DURING NAPS THROUGHOUT THE DAY. ON ROOM AIR OF 1700 WITH SATS REMAINING ABOVE 95% G/G: PT HAS ADEQUATE APPETITE. SHE HAD AN INCONTINENT STOOL X1 TIME TODAY. PUREWICK TO LOW SUCTION. ADEQUATE URINE OUTPUT THROUGHOUT DAY. PT WENT AROUND HOSPITAL AND OUTSIDE TODAY AND SHE STATED IT WAS FUN AND MADE HER FEEL GOOD.
[2025-06-03] VITALS (11 sets, daily range): BP systolic 138–179; BP diastolic 79–106
[2025-06-03 03:51] LABS: Anion Gap 9.0 mmol/L (3-11); Blood Urea Nitrogen 31.0 mg/dL (8-24); CO2, Blood 25.0 mmol/L (21-32); Calcium, Blood 9.6 mg/dL (8.5-10.1); Chloride, Blood 109.0 mmol/L (98-108); Creatinine, Blood 1.42 mg/dL (0.40-1.00); Glucose, Blood 104.0 mg/dL (70-99); Potassium, Blood 3.7 mmol/L (3.5-5.5); Sodium, Blood 139.0 mmol/L (136-145)
--- NOTE | 2025-06-03 06:31 | NUR ---
PT STABLE THROUGHOUT THE SHIFT. PT AOX3-4, TRANSFERS WITH 1 ASSIST AND FWW. PT INCONTINENT TO BOWEL AND BLADDER. PT DID HAVE 1 LARGE BM AND 1 LARGE URINE INCONTINENCE. PUREWICK IN PLACE NOW AND IS COLLECTING URINE. PT SYSTOLIC REMAINED UNDER 170MMHG AND DID NOT REQUIRE ANY PRN. PT ABLE TO SWALLOW PILLS WELL WITH WATER. PT IS ABLE TO TURN IN BED TO HELP WITH BRIEF AND LINEN CHANGES. WILLS AND GOWN CHANGED D/T URINARY INCONTIENCE.
[2025-06-03 09:26] LABS: BASOPHILS ABSOLUTE AUTO 0.03 K/mm3 (0.00-0.23); BASOPHILS PERCENT AUTO 0 % (0-2); EOSINOPHILS ABSOLUTE AUTO 0.42 K/mm3 (0.00-0.68); EOSINOPHILS PERCENT AUTO 5 % (0-6); Hematocrit 31.4 % (33.0-51.0); Hemoglobin 10.1 g/dL (11.5-16.0); IMMATURE GRAN ABSOLUTE AUTO 0.08 K/mm3 (0.00-0.10); IMMATURE GRAN PERCENT AUTO 1 % (0-1); LYMPHOCYTES ABSOLUTE AUTO 1.03 K/mm3 (0.84-5.20); LYMPHOCYTES PERCENT AUTO 13 % (21-46); MONOCYTES ABSOLUTE AUTO 0.80 K/mm3 (0.16-1.47); MONOCYTES PERCENT AUTO 10 % (4-13); Mean Corpuscular HGB Conc 32.2 g/dL (31.5-36.5); Mean Corpuscular Volume 89 fL (80-100); NEUTROPHILS ABSOLUTE AUTO 5.42 K/mm3 (1.96-9.15); NEUTROPHILS PERCENT AUTO 70 % (41-73); NRBC ABSOLUTE 0.00 K/mm3 (0.00-0.02); NRBC Auto 0.0 /100 WBC (0.0-0.2); Platelet Count 513 K/mm3 (150-400); RDW Coefficient Variation 15.0 % (11.7-14.2); RDW Standard Deviation 48.3 fL (35.1-46.3)
--- NOTE | 2025-06-03 11:07 | NUR ---
PT A/O X4. OOB TO CHAIR FOR BREAKFAST. WEAK BUT STEADY GAIT WITH FWW AND SBA. TOLERATES BREAKFAST WELL. PT STATES SHE HAS BLURRY VISION THAT STARTED PRIOR TO ADMIT AND HAS NOT CHANGED. DENIES ANY VISION LOSS OR BLACK SPOTS. BP IMPROVED AFTER PO BP MEDS THIS AM. PT CHANGED TO MEDICAL STATUS AND TAKEN TO ROOM 301 VIA WC. NO SIGN OF DISTRESS.
--- NOTE | 2025-06-03 11:15 | NUR ---
TRANSFER FROM ICU PATIENT ALERT AND INTERACTIVE. SLOW TO RESPOND TO QUESTIONS BUT APPROPRIATE RESPONSES. PATIENT APPEARS TO BE SHORT OF BREATH WHEN ATTEMPTING TO TALK BUT DENIES BEING SHORT OF BREATH WHEN ASKED. PATIENT WEARS CPAP AT HOME. 2 HOME MACHINES BROUGHT UP WITH PATIENT WITH 2 DIFFERENT STYLES OF MASKS. PATIENT STATES SHE HAS NOT SEEN A DOCTOR FOR SOME TIME. PATIENT STATES THAT SHE WANTS TO SEE PROVIDERS AT [facility] [place] [place]. PATIENT STATES HER VISION IS ABOUT HER NORMAL. SHE SAYS SHE HAS GLASSES AT HOME THAT HELP WITH HER BLURRY VISION. PATIENT ABLE TO MOVE WITH MINIMAL ASSISTANCE BUT NOTED TO HAVE SOME WEAKNESS GETTING LEGS IN BED. IRON INFUSION IN PROGRESS FROM ICU.
--- NOTE | 2025-06-03 18:30 | NUR ---
SHIFT SUMMARY PATIENT ALERT AND INTERACTIVE. TEARFUL AT TIMES. PATIENT INCONSISTANT WITH ANSWERS RELATED TO VISION. STATING SHE "CAN'T SEE" BUT WHEN TURN LIGHTS ON, VISION IMPROVES. PATIENT STATES SHE WEARS GLASSES BUT NO GLASSES WITH PATIENT. PATIENT CONTINUES TO BE 1 PERSON STAND BY ASSIST TO BATHROOM. PATIENT UP IN CHAIR MOST OF DAY. PATIENT WORKED WITH OT.
--- NOTE | 2025-06-03 19:25 | NUR ---
PATIENT VERY TEARFUL DURING BEDSIDE REPORT. ADMITS THAT SHE HAS TROUBLES WITH ANXIETY. PROVIDED ACTIVE LISTENING AND ENCOURAGEMENT. PATIENT MEDICATED EARLIER WITH XANAX.
[2025-06-04] VITALS (7 sets, daily range): BP systolic 135–174; BP diastolic 73–101
[2025-06-04 05:53] LABS: BASOPHILS ABSOLUTE AUTO 0.04 K/mm3 (0.00-0.23); BASOPHILS PERCENT AUTO 1 % (0-2); EOSINOPHILS ABSOLUTE AUTO 0.40 K/mm3 (0.00-0.68); EOSINOPHILS PERCENT AUTO 5 % (0-6); Hematocrit 31.1 % (33.0-51.0); Hemoglobin 10.0 g/dL (11.5-16.0); IMMATURE GRAN ABSOLUTE AUTO 0.06 K/mm3 (0.00-0.10); IMMATURE GRAN PERCENT AUTO 1 % (0-1); LYMPHOCYTES ABSOLUTE AUTO 1.09 K/mm3 (0.84-5.20); LYMPHOCYTES PERCENT AUTO 14 % (21-46); MONOCYTES ABSOLUTE AUTO 0.83 K/mm3 (0.16-1.47); MONOCYTES PERCENT AUTO 11 % (4-13); Mean Corpuscular HGB Conc 32.2 g/dL (31.5-36.5); Mean Corpuscular Volume 89 fL (80-100); NEUTROPHILS ABSOLUTE AUTO 5.35 K/mm3 (1.96-9.15); NEUTROPHILS PERCENT AUTO 69 % (41-73); NRBC ABSOLUTE 0.00 K/mm3 (0.00-0.02); NRBC Auto 0.0 /100 WBC (0.0-0.2); Platelet Count 499 K/mm3 (150-400); RDW Coefficient Variation 15.0 % (11.7-14.2); RDW Standard Deviation 48.5 fL (35.1-46.3)
--- NOTE | 2025-06-04 06:17 | NUR ---
SHIFT SUMMARY PATIENT ADMITTED FOR SYNCOPE AND COLLAPSE. PATIENT ALERT AND ORIENTED X3-4. PATIENT AMBULATES TO BATHROOM WITH ONE ASSIST AND FRONT WHEEL WALKER. PATIENT TEARFUL AT THE BEGINNING OF SHIFT STATING SHE COULD NOT SEE AND COULD NOT FIND THE CALL LIGHT. PATIENT LIKES THE LIGHTS TO STAY ON AT ALL TIMES SO SHE CAN SEE. NO ACUTE OVERNIGHT EVENTS. VSS. BED RAILS UP X2. BED RAILS UP X2. CALL LIGHT WITHIN REACH. BED IN LOWEST POSITION FOR SAFETY.
[2025-06-04 06:19] LABS: Alanine Aminotransfer (ALT/SGP 47.0 U/L (12-78); Albumin, Blood 2.8 g/dL (3.4-5.0); Albumin/Globulin Ratio 0.7 (0.8-1.8); Anion Gap 9.0 mmol/L (3-11); Aspartate Aminotrans (AST/SGOT 37.0 U/L (12-37); Bilirubin, Total 0.4 mg/dL (0.1-1.0); Blood Urea Nitrogen 29.0 mg/dL (8-24); CO2, Blood 25.0 mmol/L (21-32); Calcium, Blood 9.7 mg/dL (8.5-10.1); Chloride, Blood 107.0 mmol/L (98-108); Creatinine, Blood 1.58 mg/dL (0.40-1.00); Globulin, Blood 4.3 g/dL (2.2-4.0); Glucose, Blood 108.0 mg/dL (70-99); Potassium, Blood 4.3 mmol/L (3.5-5.5); Sodium, Blood 137.0 mmol/L (136-145); Total Protein, Blood 7.1 g/dL (6.4-8.2)
--- NOTE | 2025-06-04 16:58 | NUR ---
Shift Summary 54 y old female admitted on the with syncopal episode, and lacunar infarct. Today, she has been alert, oriented x4, tele SR in the 60-70s with 1st degree and bundle branch block, resp even, lungs clear diminished at bases, abdomen has palpable mass noted, doctor in room and examined, has history of uterine fibroid. positive BS. trace edema to LEs positive pedal pulses IV is patent to TAYLOR, does not draw blood though. IV removed from LFA catheter intact dressing applied. Tolerated all meals without difficulty. BS stable throughout the shift. Patient is using the call light appropriately, did not complain of difficulty seeing. Does not like the TV on due to noise distraction. Blood pressures monitored closely throughout the day. see chart
[2025-06-04] MEDS ORDERED: Polyethylene Glycol 3350 17 gm PO SCH (21:00)
[2025-06-05 04:00] VITALS: BP 156/96
--- NOTE | 2025-06-05 04:34 | NUR ---
SHIFT SUMMARY PATIENT ADMITTED FOR SYNCOPE AND COLLAPSE. PATIENT ALERT AND ORIENTED X3-4, SHE DID HAVE SOME CONFUSION THIS SHIFT. PATIENT WAS NOT USING HER CALL LIGHT AND WOULD GET UP TO THE SIDE OF THE BED INDEPENDENTLY WHEN NEEDING TO GO TO THE BATHROOM. SPINDLE TESTER REPORTED ST ELEVATION AT APPROXIMATELY 0415 PATIENT WAS ASYMPTOMATIC AND VSS STABLE, MONITORING AT THIS TIME FOR WORSENING SYMPTOMS OR ST ELEVATION. NO OTHER ACUTE OVERNIGHT EVENTS THIS SHIFT. BED RAILS UP X2. BED IN LOWEST POSITION FOR SAFETY. CALL LIGHT WITHIN REACH.
[2025-06-05 05:53] LABS: BASOPHILS ABSOLUTE AUTO 0.04 K/mm3 (0.00-0.23); BASOPHILS PERCENT AUTO 1 % (0-2); EOSINOPHILS ABSOLUTE AUTO 0.33 K/mm3 (0.00-0.68); EOSINOPHILS PERCENT AUTO 4 % (0-6); Hematocrit 30.3 % (33.0-51.0); Hemoglobin 9.9 g/dL (11.5-16.0); IMMATURE GRAN ABSOLUTE AUTO 0.07 K/mm3 (0.00-0.10); IMMATURE GRAN PERCENT AUTO 1 % (0-1); LYMPHOCYTES ABSOLUTE AUTO 1.02 K/mm3 (0.84-5.20); LYMPHOCYTES PERCENT AUTO 13 % (21-46); MONOCYTES ABSOLUTE AUTO 0.89 K/mm3 (0.16-1.47); MONOCYTES PERCENT AUTO 12 % (4-13); Mean Corpuscular HGB Conc 32.7 g/dL (31.5-36.5); Mean Corpuscular Volume 88 fL (80-100); NEUTROPHILS ABSOLUTE AUTO 5.28 K/mm3 (1.96-9.15); NEUTROPHILS PERCENT AUTO 69 % (41-73); NRBC ABSOLUTE 0.00 K/mm3 (0.00-0.02); NRBC Auto 0.0 /100 WBC (0.0-0.2); Platelet Count 484 K/mm3 (150-400); RDW Coefficient Variation 14.6 % (11.7-14.2); RDW Standard Deviation 47.1 fL (35.1-46.3)
[2025-06-05 06:23] LABS: Anion Gap 9.0 mmol/L (3-11); Blood Urea Nitrogen 31.0 mg/dL (8-24); CO2, Blood 24.0 mmol/L (21-32); Calcium, Blood 9.5 mg/dL (8.5-10.1); Chloride, Blood 107.0 mmol/L (98-108); Creatinine, Blood 1.66 mg/dL (0.40-1.00); Glucose, Blood 103.0 mg/dL (70-99); Potassium, Blood 4.1 mmol/L (3.5-5.5); Sodium, Blood 136.0 mmol/L (136-145)
[2025-06-05 07:55] VITALS: BP 184/105
[2025-06-05 11:15] VITALS: BP 156/86
[2025-06-05 12:16] LABS: Anion Gap 11.0 mmol/L (3-11); Blood Urea Nitrogen 29.0 mg/dL (8-24); CO2, Blood 24.0 mmol/L (21-32); Calcium, Blood 9.4 mg/dL (8.5-10.1); Chloride, Blood 106.0 mmol/L (98-108); Creatinine, Blood 1.65 mg/dL (0.40-1.00); Glucose, Blood 110.0 mg/dL (70-99); Potassium, Blood 4.0 mmol/L (3.5-5.5); Sodium, Blood 137.0 mmol/L (136-145)
[2025-06-05 12:50] LABS: Source, Urine Clean Catch
[2025-06-05 12:53] LABS: Bilirubin, Urine Neg (Neg); Glucose Qualitative, Urine 2+ (Neg); Ketones, Urine Neg (Neg); Leukocyte Esterase, Urine Neg (Neg); Protein, Urine 2+ (Neg); Specific Gravity, Urine 1.010 (1.003-1.022); Urobilinogen, Urine NORM (Normal)
[2025-06-05 13:03] LABS: Color, Urine Pale Yellow (P-Yellow)
[2025-06-05 13:04] LABS: Red Blood Cells, Urine Not Seen /hpf (0-2); White Blood Cells, Urine Not Seen /hpf (0-5)
--- NOTE | 2025-06-05 16:14 | NUR ---
Shift Summary Patient complained of blurry vision today, physician aware. Alert oriented x4, multiple trips to the bathroom with minimal assist with walker, had multiple incontinent episodes. Denied any pain. IV site to TAYLOR without any reddness, flushes well does not draw blood. Sat up to chair for all meals, has healthy appetite, wears SCDs now with encouragment. Had nephrology consult today via telehealth, waiting new orders. Orders to send urine to lab received and sent to lab. New med orders received and given. Will monitor. residential monitor SR 60-70s with 1st degree and bundle branch block.
[2025-06-05 16:43] VITALS: BP 175/100
[2025-06-05 17:19] VITALS: BP 157/100
[2025-06-05 19:09] VITALS: BP 145/75
[2025-06-05 23:50] LABS: DHEAS 32 ug/dL (35-256)
[2025-06-06 03:16] VITALS: BP 160/98
--- NOTE | 2025-06-06 06:37 | NUR ---
SHIFT SUMMARY PATIENT ADMITTED FOR SYNCOPE AND COLLAPSE. ALERT AND ORIENTED X4 WITH SOME CONFUSION AT TIMES. VSS. PATIENT USED CPAP ALL NIGHT. PATIENT A STAND BY ASSIST TO THE BATHROOM ALTHOUGH DID REQUIRE A FULL BED CHANGE DUE TO INCONTINENCE THIS SHIFT. PATIENT DID ALSO COMPLAIN OF BLURRY VISION THIS SHIFT. NO ACUTE CHANGES THIS SHIFT. BED IN LOWEST POSITION. BED RAILS UP X3. CALL LIGHT WITHIN REACH.
[2025-06-06 07:08] LABS: BASOPHILS ABSOLUTE AUTO 0.04 K/mm3 (0.00-0.23); BASOPHILS PERCENT AUTO 1 % (0-2); EOSINOPHILS ABSOLUTE AUTO 0.25 K/mm3 (0.00-0.68); EOSINOPHILS PERCENT AUTO 3 % (0-6); Hematocrit 32.1 % (33.0-51.0); Hemoglobin 10.3 g/dL (11.5-16.0); IMMATURE GRAN ABSOLUTE AUTO 0.06 K/mm3 (0.00-0.10); IMMATURE GRAN PERCENT AUTO 1 % (0-1); LYMPHOCYTES ABSOLUTE AUTO 1.03 K/mm3 (0.84-5.20); LYMPHOCYTES PERCENT AUTO 13 % (21-46); MONOCYTES ABSOLUTE AUTO 0.91 K/mm3 (0.16-1.47); MONOCYTES PERCENT AUTO 11 % (4-13); Mean Corpuscular HGB Conc 32.1 g/dL (31.5-36.5); Mean Corpuscular Volume 88 fL (80-100); NEUTROPHILS ABSOLUTE AUTO 5.83 K/mm3 (1.96-9.15); NEUTROPHILS PERCENT AUTO 72 % (41-73); NRBC ABSOLUTE 0.00 K/mm3 (0.00-0.02); NRBC Auto 0.0 /100 WBC (0.0-0.2); Platelet Count 503 K/mm3 (150-400); RDW Coefficient Variation 14.6 % (11.7-14.2); RDW Standard Deviation 46.6 fL (35.1-46.3)
[2025-06-06 07:40] LABS: Albumin, Blood 3.1 g/dL (3.4-5.0); Anion Gap 10 mmol/L (3-11); Blood Urea Nitrogen 27 mg/dL (8-24); CO2, Blood 23 mmol/L (21-32); Calcium, Blood 9.9 mg/dL (8.5-10.1); Chloride, Blood 107 mmol/L (98-108); Creatinine, Blood 1.58 mg/dL (0.40-1.00); Glucose, Blood 105 mg/dL (70-99); Phosphorus, Blood 4.0 mg/dL (2.5-4.9); Potassium, Blood 4.1 mmol/L (3.5-5.5); Sodium, Blood 136 mmol/L (136-145)
[2025-06-06 07:41] VITALS: BP 180/105
[2025-06-06 08:14] VITALS: BP 151/94
[2025-06-06] MEDS ORDERED: Labetalol HCL 5 MG/ML 4ML Injection (Single Dose) IV PRN (08:30)
[2025-06-06 11:39] VITALS: BP 154/87
[2025-06-06 13:43] LABS: ALDOSTERONE 6.6 ng/dL; ALDOSTERONE/RENINACTIVITY CALC 6.0 ratio (<=25.0); RENIN ACTIVITY 1.1 ng/mL/hr
[2025-06-06 15:47] VITALS: BP 146/80
--- NOTE | 2025-06-06 17:02 | NUR ---
Shift Summary Patient alert, oriented x4, tele SR 78 with 1degree AV block, 0740 SBP 205, gave 5mg labetalol IV., at 0800 SBP 151/94, physician aware and changing medications. Gave all medications once they were available. HEPLOCK alyse VAZQUEZ flushes well but does not draw blood. She has trace edema to upper and lower extremities. Encouraged patient to wear SCDs as much as possible. She complied at times, needs encouragement.Got patient up to chair for meals, has a healthy appetite other than mealtime she slept most of the day, stated she was very tired. Offered a shower, she declined. Ambulated to the bathroom multiple times with a walker to void, tolerated well. Blood sugars stable throughout the day., acute plan is to get blood pressure stabilized then to SNF for rehab. CBC and Renal Function Panel for the AM
[2025-06-06 20:48] VITALS: BP 139/79
[2025-06-07] VITALS (7 sets, daily range): BP systolic 111–143; BP diastolic 69–96
[2025-06-07 05:36] LABS: BASOPHILS ABSOLUTE AUTO 0.07 K/mm3 (0.00-0.23); BASOPHILS PERCENT AUTO 1 % (0-2); EOSINOPHILS ABSOLUTE AUTO 0.31 K/mm3 (0.00-0.68); EOSINOPHILS PERCENT AUTO 4 % (0-6); Hematocrit 35.0 % (33.0-51.0); Hemoglobin 11.3 g/dL (11.5-16.0); IMMATURE GRAN ABSOLUTE AUTO 0.06 K/mm3 (0.00-0.10); IMMATURE GRAN PERCENT AUTO 1 % (0-1); LYMPHOCYTES ABSOLUTE AUTO 1.34 K/mm3 (0.84-5.20); LYMPHOCYTES PERCENT AUTO 15 % (21-46); MONOCYTES ABSOLUTE AUTO 1.03 K/mm3 (0.16-1.47); MONOCYTES PERCENT AUTO 12 % (4-13); Mean Corpuscular HGB Conc 32.3 g/dL (31.5-36.5); Mean Corpuscular Volume 88 fL (80-100); NEUTROPHILS ABSOLUTE AUTO 6.09 K/mm3 (1.96-9.15); NEUTROPHILS PERCENT AUTO 68 % (41-73); NRBC ABSOLUTE 0.00 K/mm3 (0.00-0.02); NRBC Auto 0.0 /100 WBC (0.0-0.2); Platelet Count 526 K/mm3 (150-400); RDW Coefficient Variation 14.5 % (11.7-14.2); RDW Standard Deviation 47.0 fL (35.1-46.3)
--- NOTE | 2025-06-07 05:41 | NUR ---
SHIFT SUMMARY PT REMAINS DROWSY, INTERACTIVE TO VERBAL. ORIENTED X4. SLOW SPEECH, BUT NO DYSPHAGIA OR DYSARTHRIA NOTED. NEW PROGRESSED B/L VISION LOSS FROM SEVERE BLURRINESS TO ONLY SEEING SHADOWS + YELLOW HUE AT 0500 06/07/25. ALSO NOTED CHANGE TO LLQ ABD PAIN FROM INTERMITTENT TO CONSTANT AND NOW MODERATE. DR. MATHIAS ADVISES POCT CBG AND Q4H NEURO CHECKS. HE IS INVESTIGATING CHART FURTHER. AMBULATORY WITH 1P ASSIST DUE TO VISION LOSS B/L. TELE: SR, 66 BPM, 1ST DEG AVB, BBB. POWERGLIDE IN TAYLOR. BLOOD PRESSURES WELL-CONTROLLED OVERNIGHT WITH CHANGES PER DR. ESPITIA. DID NOT REQUIRE PRN LABETALOL. INCONTINENT OF URINE. NO LONGER HAS FRONTAL NAVA THIS AM. MAINTAINS SPO2 >=92% ON RA ON CONTINUOUS PULSE OX. PREVIOUSLY NOTED TO HAVE PLAN FOR SNF DISCHARGE IN 1-2 DAYS TO [facility].
[2025-06-07 06:03] LABS: Albumin, Blood 3.2 g/dL (3.4-5.0); Anion Gap 11 mmol/L (3-11); Blood Urea Nitrogen 32 mg/dL (8-24); CO2, Blood 23 mmol/L (21-32); Calcium, Blood 10.1 mg/dL (8.5-10.1); Chloride, Blood 106 mmol/L (98-108); Creatinine, Blood 1.92 mg/dL (0.40-1.00); Glucose, Blood 116 mg/dL (70-99); Phosphorus, Blood 4.1 mg/dL (2.5-4.9); Potassium, Blood 4.4 mmol/L (3.5-5.5); Sodium, Blood 136 mmol/L (136-145)
--- NOTE | 2025-06-07 18:53 | NUR ---
PATIENT WAS LETHARGIC AND SLEEPING ON AND OFF THROUGHOUT THE DAY, NO BM AFTER NUMEROUS ATTEMPTS ON THE TOILET,PASSED GAS, GIVEN MIRLAX AND DOCUSATE, ABDOMINAL PAIN IMPROVED AFTER PRN TRAMADOL,BOWEL SOUNDS HYPOACTIVE IN ALL 4 QUADRANTS, TENDER W/PALPATION, DISTENTED AND SOFT. AT 1710 WHILE EATING DINNER PT STATES HER VISION HAD RETURNED,ABLE TO SEE COLOR OF THIS RNS SCRUB TOP,EYES,COLOR OF CURTAIN AND ABLE TO REACH FOR DRINK HERSELF, NOTIFIED. SBAR TO ONCOMING RN.
[2025-06-08 04:03] VITALS: BP 137/84
--- NOTE | 2025-06-08 05:11 | NUR ---
SHIFT SUMMARY: PT AOX2-3 ORIENTED TO SELF, OTHERS, AND PLACE. PLEASANT AND COOPERATIVE IN CARE. SATTING WELL ON RA. SLOWLY AMBULATED TO BATHROOM 1PA/SBA. STATES THAT HER VISION IS GETTING BETTER, BUT STATES IT IS ABNORMAL. TOLERATING MEDICATIONS WELL, NO ACUTE OVERNIGHT EVENTS. PT IN BED SLEEPING, BED IN LOWEST POSITION, CALL LIGHT IN REACH. CONTINUING CARE.
[2025-06-08 06:23] LABS: Anion Gap 14.0 mmol/L (3-11); Blood Urea Nitrogen 42.0 mg/dL (8-24); CO2, Blood 21.0 mmol/L (21-32); Calcium, Blood 9.8 mg/dL (8.5-10.1); Chloride, Blood 104.0 mmol/L (98-108); Creatinine, Blood 2.28 mg/dL (0.40-1.00); Glucose, Blood 108.0 mg/dL (70-99); Potassium, Blood 4.5 mmol/L (3.5-5.5); Sodium, Blood 134.0 mmol/L (136-145)
[2025-06-08 07:23] VITALS: BP 142/93
[2025-06-08] MEDS ORDERED: Enoxaparin 30 MG/0.3 ML SYR SC SCH (09:00)
[2025-06-08] MEDS ORDERED: ATOR40TA PO (11:00)
[2025-06-08] MEDS ORDERED: Acetaminophen650 M1 PO (11:00)
[2025-06-08] MEDS ORDERED: ASPI81CH PO (11:00)
[2025-06-08] MEDS ORDERED: DOCU100 PO (11:01)
[2025-06-08] MEDS ORDERED: CARV25 PO (11:01)
[2025-06-08] MEDS ORDERED: IRBE150 PO (11:02)
[2025-06-08] MEDS ORDERED: HYDRA50 PO (11:02)
[2025-06-08] MEDS ORDERED: NIFE90ER PO (11:04)
[2025-06-08] MEDS ORDERED: TRAMADOL HCL25 MG PO (11:05)
[2025-06-08] MEDS ORDERED: MIRALAX11910 PO (11:05)
--- NOTE | 2025-06-08 12:33 | NUR ---
SBAR REPORT TO RAMIRO GALLO AT [facility] SNF/REHAB, ALL QUESTIONS CONCERNS ADDRESSED PATIENT TO BE PICKED UP BY TRANSPORT SHORTLY.
[2025-06-08 13:07] LABS: ANTI-NUCLEAR AB ANA,IGG ELISA None Detected (None Detected)
[2025-06-08 18:26] LABS: ALPHA 1 GLOBULIN 0.57 g/dL (0.19-0.46); ALPHA 2 GLOBULIN 0.83 g/dL (0.48-1.05); BETA GLOBULIN 0.94 g/dL (0.48-1.10); GAMMA 1.00 g/dL (0.62-1.51)
== END 2025-06-08 13:01 | DRG 64 ==
LOC: ER 07:05 → ICUE 07:06 → PCU 07:06 → ICUE 12:42 → MEDS 05-25 09:47 → ICUE 05-25 09:47 → MEDS 06-03 10:55
PROVIDERS: Emergency Medicine; Family Medicine; Internal Medicine; Internal Medicine Nephrology; ADMIT Internal Medicine
PROC: 5A09357 Assistance with Respiratory Ventilation, Less than 24 Consecutive Hours, Continuous Positive Airway Pressure (ICD-10-PCS; principal; 2025-05-24)
PROC: 3E03329 Introduction of Other Anti-infective into Peripheral Vein, Percutaneous Approach (ICD-10-PCS; 2025-05-25)
DX: I63.9 Cerebral infarction, unspecified (principal); I21.A1 Myocardial infarction type 2; I16.1 Hypertensive emergency; E87.21 Acute metabolic acidosis; N17.9 Acute kidney failure, unspecified; R29.704 NIHSS score 4; I50.32 Chronic diastolic (congestive) heart failure; I13.0 Hypertensive heart and chronic kidney disease with heart failure and stage 1 through stage 4 chronic kidney disease, or unspecified chronic kidney disease; R47.01 Aphasia; E03.9 Hypothyroidism, unspecified; F41.9 Anxiety disorder, unspecified; M79.7 Fibromyalgia; I16.0 Hypertensive urgency; G47.33 Obstructive sleep apnea (adult) (pediatric); K80.20 Calculus of gallbladder without cholecystitis without obstruction; K59.00 Constipation, unspecified; D25.9 Leiomyoma of uterus, unspecified; E87.6 Hypokalemia; D50.9 Iron deficiency anemia, unspecified; I15.9 Secondary hypertension, unspecified; N18.32 Chronic kidney disease, stage 3b; Z98.891 History of uterine scar from previous surgery; Z90.5 Acquired absence of kidney; Z91.198 Patient's noncompliance with other medical treatment and regimen for other reason; Z79.899 Other long term (current) drug therapy; Z88.8 Allergy status to other drugs, medicaments and biological substances; Z91.040 Latex allergy status
CPT/HCPCS: 36415; 51701; 70450; 70551; 71045; 74176; 75574; 76770; 78226; 78580; 80048; 80053; 80069; 80320; 81001; 82088; 82140; 82570; 82607; 82627; 82728; 82746; 82803; 82947; 83036; 83540; 83550; 83605; 83690; 83735; 83880; 83930; 83935; 84155; 84156; 84165; 84244; 84300; 84443; 84484; 85025; 85027; 85379; 85520; 85610; 85730; 86038; 86592; 87205; 93005; 93010; 93306; 93312; 93325; 93356; 93970; 93975; 94660; 94762; 96361; 96374; 97110; 97116; 97161; 97166; 97530; 97535; 99285-25; A9270; A9537; A9540; C1751; G0378; J0330; J0696; J1644; J1650; J2405; J2704; J2916; J3010; J7030; J7050; J7120; Q9967